=== PATIENT | male | born 1965 | race Caucasian/White ===

== ENCOUNTER 2016-09-06 12:30 | Emergency (ER) | payer OTHER ==
[~2016-09-06] VITALS: Ht 193 cm; Wt 93.2 kg
[2016-09-06 12:35] VITALS: BP 141/87; PULSE 86; RESP 16; O2SAT 99
[2016-09-06] MEDS ORDERED: Ketorolac 30 mg/mL 2 mL Inj IM ONE (13:20)
--- NOTE | 2016-09-06 13:31 | ED.REPORT ---
HPI-General Illness Date of Service Sep 06, 2016 ED Provider: Anurag Rivera PA-C Ayden is a 50-year-old male with a chief complaint of left rib pain. Patient states this pain started yesterday when he bent over to pick something up a small stick in the garden. Pain began suddenly as he bent over, he rates it 8/ 10. States that the pain is aggravated by talking, forceful inhalation or exhalation. Denies cough, wheeze, shortness of breath, substernal chest pain, heart palpitations, abdominal pain, vomiting/diarrhea, bowel changes, urinary symptoms. Patient reports a recent history of a ground-level fall on ice resulting in significant lower back pain and right leg sciatica. He was seen for this at the walk-in clinic, [facility] and has followed up with a primary care provider. He reports that this pain is at baseline. He states that 800 mg ibuprofen and methocarbamol "have not touched it." Nursing Notes Stated Complaint: GLF Chief Complaint: Back Pain or Injury Nursing Notes Reviewed: Yes Allergies: Coded Allergies: No Known Allergies (Unverified , 09/06/16) Scheduled PRN Cyclobenzaprine (Cyclobenzaprine) 10 Mg Tablet 10 MG PO TID PRN PRN Spasm Hydrocodone-Acetaminophen 5-325 mg (Hydrocodone-Acetaminophen 5-325 mg) 1 Each Tablet 1 TAB PO Q6H PRN PRN For Pain Methocarbamol (Methocarbamol) 750 Mg Tablet 2 TAB PO Q8H PRN PRN For Spasm General Time Seen by MD: 12:56 Chief Complaint Other (left rib pain) Past Medical History Past Medical History Back pain Review of Systems Negative unless stated otherwise in history of present illness Physical Exam General: Well appearing, well developed, well nourished, no acute distress. Head: Atraumatic, normocephalic. Eyes: No scleral icterus or injection. No discharge. Vision grossly intact. ENT: Voice clear, hearing grossly intact. Respiratory: Regular rate and rhythm. Breath sounds present, clear to auscultation and equal bilaterally. Cardiovascular: Regular rate and rhythm, without murmur, gallop or rub. No pedal edema. Gastrointestinal: Abdomen flat and non-tender without guarding or rebound. Bowel sounds normoactive. Back: Normal to inspection and no CVA tenderness, no midline tenderness Left ribs: Normal to inspection, no redness swelling or heat. Exquisitely tender over lateral aspect of the lowest ribs. Moderately tender over costosternal junction. Skin: Warm and dry. Neurological: Grossly nonfocal. Psychological: Alert and oriented. Speech appropriate, linear and logical. Behavior appropriate. Vital Signs Vital Signs Date Time Temp Pulse Resp B/P Pulse Ox O2 Delivery O2 Flow Rate FiO2 09/06/16 14:59 36.3 75 16 129/78 96 Room Air 09/06/16 12:35 36.5 86 16 141/87 99 Room Air Interpretation & Diagnostics X-Ray Interpretation Xray Interpretation: PROCEDURE: X-RAY LEFT RIBS, TWO VIEWS ([id number]) INDICATIONS: rib pain Lungs and pleura: The visualized lung appears clear. No pleural effusions or pneumothorax are visible. IMPRESSION: No displaced rib fractures. Re-Eval/Medical Decision Med Decision/Clinical Course I discussed this case with Dr. Joy 50-year-old male with chief complaint of left rib pain began suddenly yesterday when he bent over to miner pick a small object in the garden. Physical reveals only tenderness over left lateral lower ribs. Normal to inspection, lungs clear and equal bilaterally. X-rays revealed no bony injury, pleural effusion or pneumothorax. I think it is unlikely this pain is related to his previous back injury. Diagnosis musculoskeletal rib pain. Counseled [id number] easier, prescribed cyclobenzaprine, advise primary care follow-up and return precautions. Discharge & Departure Primary Impression: Rib pain on left side Disposition: Home Discharge Condition All VS Reviewed: Yes Condition: Stable Additional Instructions: Evaluation for left rib pain in the ED. History, physical and x-rays are reassuring that this is unlikely to be a fracture, cardiac cause or pulmonary cause. I believe this is musculoskeletal rib pain. Treatment is largely symptomatic. The pain is best treated with 800 mg of ibuprofen (Advil, Motrin) every 6 hours, or 1000 mg of acetaminophen (Tylenol) every 6 hours. These drugs can be taken at the same time for more severe pain. I will also write a prescription for cyclobenzaprine, a muscle relaxant. Do not drive or drink alcohol while taking this. Rest as much as possible over the next few days. You may find warm compresses helpful. Follow-up with Dr. Rosario in [place] if you are symptoms are not improving in 4-5 days. Return to the emergency department for any new or worsening symptoms including difficulty breathing, shortness of breath, increasing pain. Referrals: OTHER,PHYSICIAN Dr. Rosario in [place], unknown first name EDSupervising Provider for APC: Nilton Joy MD, Seth PA-C Sep 06, 2016 13:31
[2016-09-06] MEDS ORDERED: HYDR-4003 PO (13:51)
[2016-09-06] MEDS ORDERED: METH750T3 PO (13:51)
--- NOTE | 2016-09-06 14:05 | DRSVH ---
PROCEDURE: X-RAY LEFT RIBS, TWO VIEWS ([id number]) INDICATIONS: rib pain TECHNIQUE: 2 views of the left ribs were acquired. COMPARISON: None. FINDINGS: Surgical changes and devices: None. Bones and chest wall: No fractures or dislocations. No suspicious bony lesions. Overlying soft tis sues appear unremarkable. Lungs and pleura: The visualized lung appears clear. No pleural effusions or pneumothorax are visib le. IMPRESSION: No displaced rib fractures. Dictated by: Aiyana Camilo MD, PhD on 09/06/2016 at 14:03 Approved by: Aiyana Camilo MD, PhD on 09/06/2016 at 14:03
[2016-09-06] MEDS ORDERED: CYCL10TA9 PO (14:41)
[2016-09-06 14:59] VITALS: BP 129/78; PULSE 75; RESP 16; O2SAT 96
== END 2016-09-06 14:59 | disposition home or self-care (01) ==
LOC: SED 12:30
DX: R07.81 Pleurodynia (principal); W18.39XA Other fall on same level, initial encounter; Y93.89 Activity, other specified; Y92.89 Other specified places as the place of occurrence of the external cause; Y99.8 Other external cause status
CPT/HCPCS: 71100; 96372; 99284; J1885